=== PATIENT | female | born 1985 | race Caucasian/White ===

== ENCOUNTER 2017-11-23 14:24 | Emergency (ER) | payer OTHER ==
[~2017-11-23] VITALS: Ht 167.6 cm; Wt 98.8 kg
[2017-11-23 15:31] LABS: HEMATOCRIT 37.3 % (36.0-46.0); HEMOGLOBIN 12.8 G/DL (11.9-15.5); MCH 28.9 PG (29.0-34.0); MCHC 34.3 G/DL (30.0-36.0); MCV 84.2 FL (83-99); PLATELET COUNT 259 K/uL (156-360); RBC DIS.WIDTH-CV 12.9 % (11.8-14.6); RBC DIS.WIDTH-SD 39.7 % (39-53); RED BLOOD COUNT 4.43 M/uL (3.80-5.20); WHITE BLOOD COUNT 11.5 K/uL (4.1-10.2)
[2017-11-23 15:37] LABS: CHLORIDE 109 mEq/L (99-109); POTASSIUM 3.6 mEq/L (3.7-5.4); SODIUM 143 mEq/L (136-147)
[2017-11-23 15:38] LABS: GLUCOSE 89 mg/dL (70-99)
[2017-11-23 15:42] LABS: CREATININE 0.7 mg/dL (0.6-1.3); GFR ESTIMATE (CALCULATED) > 59 mL/min/
[2017-11-23 15:43] LABS: UREA NITROGEN (BUN) 7 mg/dL (9-23)
[2017-11-23 15:50] LABS: QUANTITATIVE HCG < 4.0 MIU/ML
[2017-11-23 15:57] LABS: COMMENTS - BLOOD GASES A+C+; DEVICE RA; SITE LR; TOTAL RESP RATE 18 resp/min
[2017-11-23 16:00] LABS: PCO2 38 mm Hg (35-45); PO2 74 mm Hg (80-100); pH 7.42 (7.35-7.45)
[2017-11-23 16:01] LABS: CARBOXY HGB 17.3 % (0-5); O2 SATURATION (CALCULATED) 98.4 % (95-99)
[2017-11-23 16:02] LABS: BASE EXCESS 0.3 mEq/L (-3 to +3); BICARBONATE 24.6 mEq/L (22-26); METHEMOGLOBIN 0.7 % (0-1.5)
[2017-11-23 18:25] LABS: TROP-I INTERPRETATION NEGATIVE; TROPONIN-I < 0.01 ng/mL (0.0-0.30)
[2017-11-23 20:37] LABS: pH 7.43 (7.35-7.45)
[2017-11-23 20:38] LABS: BASE EXCESS 0.4 mEq/L (-3 to +3); BICARBONATE 24.6 mEq/L (22-26); CARBOXY HGB 3.9 % (0-5); COMMENTS - BLOOD GASES A+C+; DEVICE ROOM AIR; PCO2 37 mm Hg (35-45); PO2 71 mm Hg (80-100); SITE RR; TOTAL RESP RATE 16 resp/min
[2017-11-23 20:50] VITALS: BP 130/74
== END 2017-11-23 20:51 | disposition home or self-care (01) ==
LOC: EME 14:24
PROVIDERS: Nurse Practitioner Family; Physician Assistant
DX: R11.0 Nausea (principal); T58.8X1A Toxic effect of carbon monoxide from other source, accidental (unintentional), initial encounter; Z57.5 Occupational exposure to toxic agents in other industries; R00.1 Bradycardia, unspecified; R94.31 Abnormal electrocardiogram [ECG] [EKG]
CPT/HCPCS: 36600; 80048; 82803; 82810; 84484; 84702; 85027; 93005; 99281; 99285